=== PATIENT | male | born 1990 | race Caucasian/White ===

== ENCOUNTER 2017-03-06 12:32 | Emergency (ER) | payer OTHER ==
[~2017-03-06] VITALS: Ht 180.3 cm; Wt 91.5 kg
[2017-03-06 12:34] VITALS: BP 136/73
[2017-03-06] MEDS ORDERED: [UNRECOGNIZED DRUG - CODE] PO (12:53)
[2017-03-06] MEDS ORDERED: FLON1SPR (14:02)
[2017-03-06] MEDS ORDERED: MAGICMW MT (14:02)
[2017-03-06] MEDS ORDERED: AMOX875T PO (14:02)
[2017-03-06] MEDS ORDERED: TESS100C PO (14:02)
== END 2017-03-06 14:08 | disposition home or self-care (01) ==
LOC: M ED 12:32
DX: J06.9 Acute upper respiratory infection, unspecified (principal); H66.91 Otitis media, unspecified, right ear